=== PATIENT | female | born 1995 | race Caucasian/White ===

== ENCOUNTER 2018-07-01 17:55 | Emergency (ER) | payer OTHER ==
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
[2018-07-01 19:00] VITALS: BP 138/89
[2018-07-01] MEDS ORDERED: ORPH-16 PO (19:36)
[2018-07-01] MEDS ORDERED: TRAM50TA PO (19:36)
[2018-07-01] MEDS ORDERED: DICL50TA4 PO (19:36)
[2018-07-01] MEDS ORDERED: IBUPROFEN 600 MG TABLET. PO ONE (19:45)
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
== END 2018-07-01 19:41 | disposition home or self-care (01) ==
LOC: ER 17:55
DX: S60.222A Contusion of left hand, initial encounter (principal); S80.01XA Contusion of right knee, initial encounter; F41.9 Anxiety disorder, unspecified; F32.9 Major depressive disorder, single episode, unspecified; J45.909 Unspecified asthma, uncomplicated; Z88.8 Allergy status to other drugs, medicaments and biological substances; V89.2XXA Person injured in unspecified motor-vehicle accident, traffic, initial encounter; Y93.I9 Activity, other involving external motion; Y92.488 Other paved roadways as the place of occurrence of the external cause; Y99.8 Other external cause status
CPT/HCPCS: 73130; 73562; 73590; 99283